=== PATIENT | female | born 1995 | race American Indian/Alaskan Native ===

== ENCOUNTER 2020-02-25 14:10 | Emergency (ER) | payer OTHER ==
[2020-02-25] MEDS ORDERED: KETOROLAC 30 MG/1 ML INJ IV ONE (14:57)
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
[2020-02-25] MEDS ORDERED: MORPHINE 4 MG/1 ML INJ IV ONE (16:48)
[2020-02-25] MEDS ORDERED: HYDROcodone/ACETAMINOPHEN 7.5-325MG TAB PO ONE (16:53)
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
[2020-02-25 18:23] VITALS: BP 136/82
== END 2020-02-25 18:00 | disposition home or self-care (01) ==
LOC: ED 14:10
DX: S09.90XA Unspecified injury of head, initial encounter (principal); S16.1XXA Strain of muscle, fascia and tendon at neck level, initial encounter; S53.402A Unspecified sprain of left elbow, initial encounter; S80.02XA Contusion of left knee, initial encounter; S63.614A Unspecified sprain of right ring finger, initial encounter; S63.616A Unspecified sprain of right little finger, initial encounter; F41.9 Anxiety disorder, unspecified; F32.9 Major depressive disorder, single episode, unspecified; F17.200 Nicotine dependence, unspecified, uncomplicated; Z98.890 Other specified postprocedural states; Z79.899 Other long term (current) drug therapy; V89.2XXA Person injured in unspecified motor-vehicle accident, traffic, initial encounter; Y93.89 Activity, other specified; Y92.410 Unspecified street and highway as the place of occurrence of the external cause; Y99.8 Other external cause status
CPT/HCPCS: 36415; 70450; 72125; 73080; 73130; 73562; 84703; 96374; 99285; J1885

== ENCOUNTER 2021-07-16 16:24 | Emergency (ER) | payer SELFPAY ==
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
[2021-07-16 19:25] LABS: Basophils # (Auto) 0.1 K/mm3 (0.0-0.1); Basophils % (Auto) 1.1 % (0.0-1.8); Eosinophils % (Auto) 0.2 % (0.0-4.3); Hematocrit 42.8 % (30.3-42.9); Hemoglobin 13.6 gm/dl (10.1-14.3); Lymphocytes # (Auto) 2.1 K/mm3 (1.2-5.4); Lymphocytes % (Auto) 27.5 % (13.4-35.0); Mean Corpuscular HGB Conc 32 % (30-34); Mean Corpuscular Volume 93 fl (79-97); Monocytes # (Auto) 0.5 K/mm3 (0.0-0.8); Monocytes % (Auto) 6.7 % (0.0-7.3); Platelet Count 374 K/mm3 (140-440); Red Blood Count 4.59 M/mm3 (3.65-5.03); Red Cell Distribution Width 13.3 % (13.2-15.2)
[2021-07-16 19:26] LABS: Alanine Aminotransferase 20 units/L (7-56); Albumin 4.9 g/dL (3.9-5); BUN/Creatinine Ratio 13; Blood Urea Nitrogen 12 mg/dL (7-17); Calcium 9.9 mg/dL (8.4-10.2); Hemolysis Index 6
--- NOTE | 2021-07-17 10:51 | Consultation ---
History of Present Illness - Reason for Consult Consult date: 07/17/21 Reason for consult: agitation - History of Present Psychiatric Illness The patient was seen today. She is a 26y/o female who was brought to the hospital for agitation. During my evaluation of the patient she is calm, cooperative, and polite. The patient is conversational. She says she's unsure why she's still in the hospital. The patient says "I'm a diabetic and I think my blood sugar was low and it made me act a certain way." The patient says she lives her mom who usually helps her manage her meds. The patient says she currently sees a psychiatrist and a therapist for depression and anxiety. She says "I had a tough childhood with my dad but things are better now." She says "they work with me to teach me coping skills and everything." The patient denies SI/HI. She says "I used to be suicidal when I was about 18 because of the things I've been through, but not anymore." She says "my therapist helped me through that." The patient denies hallucinations of any kind. She says she has two jobs at "[employer]." She says "well, if I haven't lost them because of this." She says she'll be done with school in October. She denies any illicit drug use, alcohol or nicotine. REVIEW OF SYSTEMS Constitutional: Negative for weight loss ENT: Negative for stridor Respiratory: Negative for cough or hemoptysis All other systems reviewed and are negative MENTAL STATUS EXAMINATION General Appearance and Behavior: Age appropriate, good hygiene, wearing appropriate clothes. calm, cooperative, pleasant and polite Cooperation: Cooperative Psychomotor Behavior: Psychomotor normal Mood: fine Affect and affective range: congruent with stated mood Thought Process: goal directed Thought Content: None Speech: normal tone and pace Suicidal Ideation: Denies Homicidal Ideation: Denies Hallucinations: Denies Delusions: Denies Impulse Control: Normal Insight and Judgment: Normal insight and fair judgment Memory: Normal Attention: Attentive Orientation: a/o x 3 Assessment (1) Hx of Depression and anxiety Current Visit: Yes Status: Acute Treatment Plan d/c 1013 No meds at this time. Continue previously prescribed meds Medical: per primary Disposition: DO not recommend acute psychiatric inpatient treatment Will sign off. Thanks Case staffed with Dr. Witt. Medications and Allergies Allergies Allergy/AdvReac Type Severity Reaction Status Date / Time No Known Allergies Allergy Verified 07/16/21 18:21 Home Medications Medication Instructions Recorded Confirmed Last Taken Type Sertraline [Zoloft] 100 mg PO QDAY 07/16/21 07/16/21 Unknown History metFORMIN [Glucophage] 500 mg PO QHS 07/16/21 07/16/21 Unknown History Mental Status Exam - Vital signs Last Vital Signs Temp 98.5 F 07/17/21 03:06 Pulse 96 H 07/17/21 03:06 Resp 18 07/17/21 03:06 BP 128/90 07/17/21 03:06 Pulse Ox 100 07/17/21 03:06 Results Result Diagrams: 07/16/21 18:26 07/16/21 18:26 Abnormal lab results 07/16/21 Range/Units 18:26 Carbon Dioxide 18 L (22-30) mmol/L Total Protein 8.3 H (6.3-8.2) g/dL All other labs normal.
--- NOTE | 2021-07-17 11:35 | Emergency Department Report ---
Blank Doc - Documentation Documentation: 26-year-old female initially placed on 1013 after psychosis, agitation, and co mbative behavior. Patient required IM medication. Since ED stay she is calm and cooperative. Patient was seen by mental health water hydrant installer this morning and recommends to discontinue 1013, discharge, continue current medications with outpatient follow-up
[2021-07-17 12:37] VITALS: BP 139/96
== END 2021-07-17 12:37 | disposition home or self-care (01) ==
LOC: ED 16:24
DX: F22 Delusional disorders (principal); F32.9 Major depressive disorder, single episode, unspecified; Z20.822 Contact with and (suspected) exposure to COVID-19; F41.9 Anxiety disorder, unspecified; F17.200 Nicotine dependence, unspecified, uncomplicated; Z79.899 Other long term (current) drug therapy
CPT/HCPCS: 36415; 80053; 84443; 84703; 85025; 99284; U0003; 80320; G0480